=== PATIENT | female | born 1955 | race Caucasian/White ===

== ENCOUNTER → 2021-08-23 | Outpatient (CLI) | payer MEDICARE ==
[~2021-08-23] MED LIST: ESTRADIOL; HYDR200T3 PO; MOME50SP2 NARES; VITATAB74 PO; YUVA10TA3 VA
== END ==
LOC: M RAD 13:01
PROVIDERS: ATTEND Otolaryngology
DX: J32.4 Chronic pansinusitis (principal); G43.019 Migraine without aura, intractable, without status migrainosus; J34.2 Deviated nasal septum